=== PATIENT | female | born 1970 | race Caucasian/White ===

== ENCOUNTER → 2016-06-10 | Outpatient (CLI) | payer BC ==
--- NOTE | 2016-06-11 15:47 | MR ---
EXAM DATE: 06/10/16 PATIENT'S AGE: 45 Patient: PATRICIA BLOUNT Facility: [place], [place] Site . Site : 1970 Study: MRI Head W/ and W/O Cont [id number] 7:09:42 PM Ordering Physician: Sheryl Conroy Final Report: INDICATION: migraine, unspecified, not intractable, without st PROCEDURE The entire head was imaged in the axial plane emphasizing EPI DWI and ADC mapping, as well as FLAIR and T2-weighted FSE sequences. T1-weighted and FLAIR sagittal sequences were obtained. Following the uneventful intravenous administration of gadolinium based contrast agent, T1-weighted coronal and axial sequences were also obtained. FINDINGS The brain is normal in morphology and volume. The myers and white matter are normal in signal intensity. The configuration of the ventricular system is within normal limits. All the major intracranial vascular structures demonstrate normal flow-related signal voids. The signal arising from the diploic space is normal. The orbits and their contents are unremarkable. There is no significant intracranial abnormality. There is no mass, mass effect or signal abnormality. There is no evidence for recent or prior hemorrhage. There is no focus of restricted diffusion or pathologic enhancement to suggest recent infarction, active demyelination or acute inflammation. CONCLUSION Normal brain MRI. Dictated by: Michael Love MD @ 06/11/2016 11:07:22 (Electronic Signature) Report Signed by Proxy and Original Signed Document filed in the Medical Record. [facility] HOSPITALDamaso
== END | disposition home or self-care (01) ==
LOC: MW.MRI 17:47
PROVIDERS: ATTEND Psychiatry & Neurology Neuromuscular Medicine
DX: G43.909 Migraine, unspecified, not intractable, without status migrainosus (principal); G89.29 Other chronic pain
CPT/HCPCS: 70553; 70553-26

== ENCOUNTER → 2016-07-24 | Outpatient (CLI) | payer BC ==
--- NOTE | 2016-07-24 18:55 | PCM.PRNOTE ---
- Free Text/Narrative Note: Cardiolite stress test Resting blood pressure 124/84, pulse 99 Patient exercised per Fer protocol 6 minutes and 26 seconds and achieved a maximum heart rate of 150 beats per minute which was 87% of age-predicted maximum heart rate. Mets: 7.0 double product Resting EKG revealed normal sinus rhythm. With exertion, no significant ST-T changes were noted. Test stopped at target heart rate.. No complaints of chest pain during exercise or recovery. Impression: #1. Negative stress test for ischemic ST-T changes #2. Poor exercise tolerance
== END ==
LOC: MW.NM 06:21
PROVIDERS: ATTEND Student in an Organized Health Care Education/Training Program
DX: I10 Essential (primary) hypertension (principal); Z53.9 Procedure and treatment not carried out, unspecified reason
CPT/HCPCS: 93017

== ENCOUNTER 2018-06-11 01:29 | Emergency (ER) | payer BC ==
[2018-06-11] MEDS ORDERED: Sodium Chloride 0.9% 10 ML Syringe FLUSH PRN (01:40)
[2018-06-11] MEDS ORDERED: Sodium Chloride 0.9% 2.5 ML Syringe FLUSH PRN (01:40)
[2018-06-11] MEDS ORDERED: Sodium Chloride 0.9% 1,000 ML IV ONE (01:44)
[2018-06-11] MEDS ORDERED: Ondansetron 4 MG/2 ML SDV IVPUSH ONE ×2 (01:45→03:01)
--- NOTE | 2018-06-11 01:48 | EDM.PDOC ---
ED HPI GENERAL MEDICAL PROBLEM - General Chief Complaint: Chest Pain Stated Complaint: CHEST PAIN Time Seen by Provider: 06/11/18 01:46 - History of Present Illness INITIAL COMMENTS - FREE TEXT/NARRATIVE: HISTORY AND PHYSICAL: History of present illness: Patient's 47-year-old white female with history of hypertension hypercholesterolemia presents with a concern of chest pain 2 days he states that cold cough over last several days and developmental tonight of diaphoresis with carpal pedal spasm of her hands bilaterally she states she was not hyperventilating at the time. She denies fever chills Review of systems: As per history of present illness and below otherwise all systems reviewed and negative. Past medical history: As per history of present illness and as reviewed below otherwise noncontributory. Surgical history: As per history of present illness and as reviewed below otherwise noncontributory. Social history: No reported history of drug or alcohol abuse. Family history: As per history of present illness and as reviewed below otherwise noncontributory. Physical exam: HEENT: Atraumatic, normocephalic, pupils reactive, negative for conjunctival pallor or scleral icterus, mucous membranes moist, throat clear, neck supple, nontender, trachea midline. Lungs: Clear to auscultation, breath sounds equal bilaterally, chest nontender. Heart: S1S2, regular, negative for clicks, rubs, or JVD. Abdomen: Soft, nondistended, nontender. Negative for masses or hepatosplenomegaly. Negative for costovertebral tenderness. Pelvis: Stable nontender. Genitourinary: Deferred. Rectal: Deferred. Extremities: Atraumatic, negative for cords or calf pain. Neurovascular unremarkable. Neuro: Awake, alert, oriented. Cranial nerves II through XII unremarkable. Cerebellum unremarkable. Motor and sensory unremarkable throughout. Exam nonfocal. Diagnostics: CBC CMP troponin PT/INR chest x-ray EKG influenza screen Therapeutics: Saline 1 L bolus Zofran 4 mg IV Impression: #1 atypical chest pain #2 viral syndrome Definitive disposition and diagnosis as appropriate pending reevaluation and review of above. Chest Pain Score (Numeric/FACES): 8 - Related Data Allergies Allergy/AdvReac Type Severity Reaction Status Date / Time acetaminophen [From Fioricet] Allergy Other Verified 06/11/18 01:38 butalbital [From Fioricet] Allergy Other Verified 06/11/18 01:38 caffeine [From Fioricet] Allergy Other Verified 06/11/18 01:38 sumatriptan [From Imitrex] Allergy Anaphylactic Verified 06/11/18 01:38 Shock flu vaccine Allergy Swelling Uncoded 06/11/18 01:38 inderal Allergy Hives Uncoded 06/11/18 01:38 narcotics Allergy Hives Uncoded 06/11/18 01:38 Home Meds: Home Meds Escitalopram Oxalate [Lexapro] 20 mg PO DAILY 04/14/14 [History] Metoprolol Succinate [Toprol Xl] 100 mg PO BEDTIME 04/14/14 [History] ALPRAZolam [Xanax] 1 mg PO ASDIRECTED PRN 02/22/16 [History] Cyclobenzaprine HCl 10 mg PO ASDIRECTED PRN 02/22/16 [History] Ketorolac Tromethamine 1 tab PO ASDIRECTED PRN 02/22/16 [History] Levothyroxine Sodium [Levoxyl] 50 mcg PO DAILY 02/22/16 [History] Promethazine HCl 1 - 2 tab PO ASDIRECTED PRN 02/22/16 [History] Nortriptyline 50 mg PO BEDTIME 05/12/16 [History] Past Medical History HEENT History: Reports: None Cardiovascular History: Reports: High Cholesterol, Hypertension Gastrointestinal History: Reports: GERD Genitourinary History: Reports: None [employer]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, Neurological History: Reports: Migraines Psychiatric History: Reports: Anxiety, Depression Endocrine/Metabolic History: Reports: Hypothyroidism, Obesity/BMI 30+ - Infectious Disease History Infectious Disease History: Reports: Chicken Pox - Past Surgical History Head Surgeries/Procedures: Reports: None HEENT Surgical History: Reports: Adenoidectomy, Tonsillectomy GI Surgical History: Reports: Cholecystectomy, Colonoscopy Female Surgical History: Reports: Section, Hysterectomy, Salpingo- Oophorectomy, Tubal Ligation Dermatological Surgical History: Reports: Plastic Surgical Reconstruction/Repair Social & Family History - Family History Family Medical History: Noncontributory - Tobacco Use Smoking Status *Q: Never Smoker Second Hand Smoke Exposure: No - Caffeine Use Caffeine Use: Reports: Coffee Other Caffeine Use: 2-3 daily - Recreational Drug Use Recreational Drug Use: No ED ROS GENERAL - Review of Systems Review Of Systems: ROS reveals no pertinent complaints other than HPI. ED EXAM, GENERAL - Physical Exam Exam: See Below (See dictation) Course - Vital Signs Last Recorded V/S: Last Vital Signs Temp 36.1 C 06/11/18 01:41 Pulse 94 06/11/18 03:48 Resp 18 06/11/18 02:47 BP 120/76 06/11/18 03:48 Pulse Ox 90 L 06/11/18 03:48 - Orders/Labs/Meds Orders: Active Orders 24 hr Category Date Time Status Cardiac Monitoring [RC] . DIRECTED Care 06/11/18 01:40 Active EKG Documentation Completion [RC] STAT Care 06/11/18 01:40 Active COMPREHENSIVE METABOLIC PN,CMP [CHEM] Stat Lab 06/11/18 01:40 Results TROPONIN I [CHEM] Stat Lab 06/11/18 01:40 Results Sodium Chloride 0.9% [Saline Flush] Med 06/11/18 01:40 Active 10 ml FLUSH ASDIRECTED PRN Sodium Chloride 0.9% [Saline Flush] Med 06/11/18 01:40 Active 2.5 ml FLUSH ASDIRECTED PRN Saline Lock Insert [OM.PC] Stat Oth 06/11/18 01:40 Ordered Medication Orders Sodium Chloride (Saline Flush) 10 ml FLUSH ASDIRECTED PRN PRN Reason: Keep Vein Open Last Admin: 06/11/18 01:55 Dose: 10 ml Sodium Chloride (Saline Flush) 2.5 ml FLUSH ASDIRECTED PRN PRN Reason: Keep Vein Open Last Admin: 06/11/18 01:55 Dose: 2.5 ml Labs: Laboratory Tests 06/11/18 06/11/18 06/11/18 Range/Units 01:40 01:40 01:40 WBC 5.72 (4.0-11.0) K/uL RBC 4.78 (4.30-5.90) M/uL Hgb 15.3 (12.0-16.0) g/dL Hct 43.0 (36.0-46.0) % MCV 90.0 (80.0-98.0) fL MCH 32.0 (27.0-32.0) pg MCHC 35.6 (31.0-37.0) g/dL RDW Std Deviation 41.2 (28.0-62.0) fl RDW Coeff of Judy 13 (11.0-15.0) % Plt Count 219 (150-400) K/uL MPV 9.70 (7.40-12.00) fL Neut % (Auto) 66.9 (48.0-80.0) % Lymph % (Auto) 23.6 (16.0-40.0) % [place] % (Auto) 8.0 (0.0-15.0) % Eos % (Auto) 1.2 (0.0-7.0) % Baso % (Auto) 0.3 (0.0-1.5) % Neut # (Auto) 3.8 (1.4-5.7) K/uL Lymph # (Auto) 1.4 (0.6-2.4) K/uL [place] # (Auto) 0.5 (0.0-0.8) K/uL Eos # (Auto) 0.1 (0.0-0.7) K/uL Baso # (Auto) 0.0 (0.0-0.1) K/uL Nucleated RBC % 0.0 /100WBC Nucleated RBCs # 0 K/uL INR 1.03 Sodium 135 L (136-145) mmol/L Potassium 3.5 (3.5-5.1) mmol/L Chloride 99 (98-107) mmol/L Carbon Dioxide 27.2 (21.0-32.0) mmol/L BUN 18 (7.0-18.0) mg/dL Creatinine 1.6 H (0.6-1.0) mg/dL Est Cr Clr Drug Dosing 41.81 mL/min Estimated GFR (MDRD) 34.4 ml/min Glucose 153 H (74-106) mg/dL Calcium 9.1 (8.5-10.1) mg/dL Total Bilirubin 0.5 (0.2-1.0) mg/dL ALT 28 (14-63) IU/L Troponin I < 0.050 (0.000-0.056) ng/mL Total Protein 7.3 (6.4-8.2) g/dL Albumin 3.7 (3.4-5.0) g/dL Globulin 3.6 (2.6-4.0) g/dL Albumin/Globulin Ratio 1.0 (0.9-1.6) Meds: Medications Generic Name Dose Route Start Last Admin Trade Name Freq PRN Reason Stop Dose Admin Sodium Chloride 10 ml 06/11/18 01:40 06/11/18 01:55 Saline Flush FLUSH 10 ml ASDIRECTED PRN Administration Keep Vein Open Sodium Chloride 2.5 ml 06/11/18 01:40 06/11/18 01:55 Saline Flush FLUSH 2.5 ml ASDIRECTED PRN Administration Keep Vein Open Discontinued Medications Generic Name Dose Route Start Last Admin Trade Name Freq PRN Reason Stop Dose Admin Sodium Chloride 1,000 mls @ 999 mls/hr 06/11/18 01:44 06/11/18 01:52 Normal Saline IV 06/11/18 02:44 999 mls/hr .Bolus ONE Administration Ondansetron HCl 4 mg 06/11/18 01:45 06/11/18 01:55 Zofran IVPUSH 06/11/18 01:46 4 mg ONETIME ONE Administration Ondansetron HCl 4 mg 06/11/18 03:01 06/11/18 03:12 Zofran IVPUSH 06/11/18 03:02 4 mg ONETIME ONE Administration Departure - Departure Time of Disposition: 03:59 Disposition: Home, Self-Care 01 Preliminary Cause of *Q: Sepsis & Multi System Organ Failure Clinical Impression: Influenza - Discharge Information Referrals: Manuel Rodriguez MD [Primary Care Provider] - Forms: ED Department Discharge Additional Instructions: The following information is given to patients seen in the emergency department who are being discharged to home. This information is to outline your options for follow-up care. We provide all patients seen in our emergency department with a follow-up referral. The need for follow-up, as well as the timing and circumstances, are variable depending upon the specifics of your emergency department visit. If you don't have a primary care physician on staff, we will provide you with a referral. We always advise you to contact your personal physician following an emergency department visit to inform them of the circumstance of the visit and for follow-up with them and/or the need for any referrals to a consulting specialist. The emergency department will also refer you to a specialist when appropriate. This referral assures that you have the opportunity for followup care with a specialist. All of these measure are taken in an effort to provide you with optimal care, which includes your followup. Under all circumstances we always encourage you to contact your private physician who remains a resource for coordinating your care. When calling for followup care, please make the office aware that this follow-up is from your recent emergency room visit. If for any reason you are refused follow-up, please contact the [facility] emergency department at and asked to speak to the emergency department charge nurse. Off work until released by primary medical doctor Motrin/Tylenol as directed return as needed as discussed infectious precautions as discussed - My Orders Last 24 Hours: My Active Orders 06/11/18 01:40 Cardiac Monitoring [RC] . DIRECTED EKG Documentation Completion [RC] STAT COMPREHENSIVE METABOLIC PN,CMP [CHEM] Stat TROPONIN I [CHEM] Stat Sodium Chloride 0.9% [Saline Flush] 10 ml FLUSH ASDIRECTED PRN Sodium Chloride 0.9% [Saline Flush] 2.5 ml FLUSH ASDIRECTED PRN Saline Lock Insert [OM.PC] Stat - Assessment/Plan Last 24 Hours: My Active Orders 06/11/18 01:40 Cardiac Monitoring [RC] . DIRECTED EKG Documentation Completion [RC] STAT COMPREHENSIVE METABOLIC PN,CMP [CHEM] Stat TROPONIN I [CHEM] Stat Sodium Chloride 0.9% [Saline Flush] 10 ml FLUSH ASDIRECTED PRN Sodium Chloride 0.9% [Saline Flush] 2.5 ml FLUSH ASDIRECTED PRN Saline Lock Insert [OM.PC] Stat
--- NOTE | 2018-06-11 02:26 | CR ---
INDICATION: Chest pain TECHNIQUE: Chest radiograph 1 view COMPARISON: None FINDINGS: Moderate degradation of image quality noted due to body habitus. Mediastinum: The mediastinum is normal in appearance. The heart silhouette is normal in size and morphology. Lung: Both lungs are unremarkable in appearance. No sign of pleural effusion seen. No pneumothorax is identified. Musculoskeletal: Unremarkable for age. IMPRESSION: 1. No acute cardiopulmonary disease is seen. Dictated by: Héctor Wetzel MD @ 06/11/2018 02:26:10 (Electronically Signed)
[2018-06-11 03:47] LABS: CHLORIDE,CL 99 mmol/L (98-107); SODIUM,NA 135 mmol/L (136-145)
[2018-06-11 03:48] VITALS: BP 120/76
== END 2018-06-11 04:19 | disposition home or self-care (01) ==
LOC: MW.ED 01:29
DX: R07.89 Other chest pain (principal); B34.9 Viral infection, unspecified; F41.9 Anxiety disorder, unspecified; F32.9 Major depressive disorder, single episode, unspecified; I10 Essential (primary) hypertension; E78.00 Pure hypercholesterolemia, unspecified; K21.9 Gastro-esophageal reflux disease without esophagitis; Z88.6 Allergy status to analgesic agent; Z91.018 Allergy to other foods; Z88.7 Allergy status to serum and vaccine; Z88.5 Allergy status to narcotic agent; Z79.899 Other long term (current) drug therapy
CPT/HCPCS: 36415; 71045; 80053; 84484; 85025; 85610; 87804; 93005; 96361; 96374; 96376; 99285; J2405; J7040; 99284

== ENCOUNTER 2020-03-31 11:40 | Emergency (ER) | payer BC ==
[2020-03-31] MEDS ORDERED: hydrOXYzine HCl 25 MG Tab PO ONE (11:41)
[2020-03-31] MEDS ORDERED: methylPREDNISolone Sodium Succinate 125 MG/2 ML SDV ONE (11:45)
--- NOTE | 2020-03-31 11:46 | EDM.PDOC ---
ED HPI GENERAL MEDICAL PROBLEM - General Chief Complaint: Allergic Reaction Stated Complaint: [facility] Time Seen by Provider: 03/31/20 11:41 Source of Information: Reports: Patient History Limitations: Reports: No Limitations - History of Present Illness INITIAL COMMENTS - FREE TEXT/NARRATIVE: She is a 49-year-old female with a history of multiple allergies who presented today after receiving the first dose of the Moderna COVID-19 vaccine. Patient states she has been taking Benadryl for the past few days to prepare but at the receiving shot she became very flushed and itchy from head to toe. Patient denies any shortness of breath throat tightness or swelling of her lips. headache Pain Score (Numeric/FACES): 6 - Related Data Allergies Allergy/AdvReac Type Severity Reaction Status Date / Time acetaminophen [From Fioricet] Allergy Other Verified 03/31/20 11:50 butalbital [From Fioricet] Allergy Other Verified 03/31/20 11:50 caffeine [From Fioricet] Allergy Other Verified 03/31/20 11:50 sumatriptan [From Imitrex] Allergy Anaphylactic Verified 03/31/20 11:50 Shock flu vaccine Allergy Swelling Uncoded 03/31/20 11:50 inderal Allergy Hives Uncoded 03/31/20 11:50 narcotics Allergy Hives Uncoded 03/31/20 11:50 Home Meds: Home Meds Metoprolol Succinate [Toprol Xl] 50 mg PO BEDTIME 04/14/14 [History] ALPRAZolam [Xanax] 1 mg PO ASDIRECTED PRN 02/22/16 [History] Ketorolac Tromethamine 1 tab PO ASDIRECTED PRN 02/22/16 [History] Levothyroxine Sodium [Levoxyl] 50 mcg PO DAILY 02/22/16 [History] Promethazine HCl 1 - 2 tab PO ASDIRECTED PRN 02/22/16 [History] Losartan [Cozaar] 100 mg PO DAILY 03/31/20 [History] Potassium Chloride 20 meq PO BID 03/31/20 [History] Rosuvastatin [Crestor] 10 mg PO DAILY 03/31/20 [History] Valproic Acid [Depakene] 1,000 mg PO ASDIRECTED PRN 03/31/20 [History] Venlafaxine [Venlafaxine HCl ER] 300 mg PO ASDIRECTED PRN 03/31/20 [History] Zolpidem Tartrate [Ambien] 12.5 mg PO ASDIRECTED 03/31/20 [History] hydroCHLOROthiazide [Hydrochlorothiazide] 50 mg PO DAILY 03/31/20 [History] predniSONE [Prednisone] 50 mg PO DAILY 4 Days #4 tablet 03/31/20 [Rx] tiZANidine [Zanaflex] 1 mg PO ASDIRECTED PRN 03/31/20 [History] Past Medical History HEENT History: Reports: None Cardiovascular History: Reports: High Cholesterol, Hypertension Gastrointestinal History: Reports: GERD Genitourinary History: Reports: 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, Neurological History: Reports: Migraines Psychiatric History: Reports: Anxiety, Depression Endocrine/Metabolic History: Reports: Hypothyroidism, Obesity/BMI 30+ - Infectious Disease History Infectious Disease History: Reports: Chicken Pox - Past Surgical History Head Surgeries/Procedures: Reports: None HEENT Surgical History: Reports: Adenoidectomy, Tonsillectomy GI Surgical History: Reports: Cholecystectomy, Colonoscopy Female Surgical History: Reports: Section, Hysterectomy, Salpingo- Oophorectomy, Tubal Ligation Dermatological Surgical History: Reports: Plastic Surgical Reconstruction/Repair Social & Family History - Family History Family Medical History: No Pertinent Family History - Caffeine Use Caffeine Use: Reports: Coffee Other Caffeine Use: 2-3 daily ED ROS GENERAL - Review of Systems Review Of Systems: See Below Constitutional: Reports: No Symptoms HEENT: Reports: No Symptoms Respiratory: Reports: No Symptoms Cardiovascular: Reports: No Symptoms Endocrine: Reports: No Symptoms GI/Abdominal: Reports: No Symptoms : Reports: No Symptoms Musculoskeletal: Reports: No Symptoms Skin: Reports: Pruritis Neurological: Reports: No Symptoms Psychiatric: Reports: No Symptoms Hematologic/Lymphatic: Reports: No Symptoms Immunologic: Reports: No Symptoms ED EXAM, GENERAL - Physical Exam Exam: See Below Exam Limited By: No Limitations General Appearance: Alert, WD/WN Eye Exam: Bilateral Eye: EOMI, PERRL Throat/Mouth: Normal Inspection, Normal Lips, Normal Teeth, Normal Gums, No Airway Compromise Neck: Normal Inspection Respiratory/Chest: No Respiratory Distress, Lungs Clear, Normal Breath Sounds Skin Exam: No: No Rash, Petechiae Course - Vital Signs Last Recorded V/S: Last Vital Signs Temp 97.1 F 03/31/20 11:48 Pulse 85 03/31/20 14:28 Resp 18 03/31/20 14:28 BP 137/91 H 03/31/20 14:28 Pulse Ox 98 03/31/20 14:28 - Orders/Labs/Meds Meds: Medications Discontinued Medications Generic Name Dose Route Start Last Admin Trade Name Daphne PRN Reason Stop Dose Admin Diphenhydramine HCl 25 mg 03/31/20 12:18 03/31/20 12:25 Benadryl IVPUSH 03/31/20 12:19 25 mg ONETIME ONE Administration Famotidine 20 mg 03/31/20 14:20 03/31/20 14:27 Pepcid IVPUSH 03/31/20 14:21 20 mg ONETIME ONE Administration Hydroxyzine HCl 25 mg 03/31/20 11:41 03/31/20 11:56 Atarax PO 03/31/20 11:42 25 mg ONETIME ONE Administration Methylprednisolone Sodium Succinate 125 mg 03/31/20 11:54 03/31/20 11:56 Solu-Medrol IV 03/31/20 11:55 125 mg NOW STA Administration Methylprednisolone Sodium Succinate Confirm 03/31/20 11:45 03/31/20 11:57 Solu-Medrol Administered 03/31/20 11:46 Not Given Dose 125 mg .ROUTE .STK-MED ONE - Re-Assessments/Exams Free Text/Narrative Re-Assessment/Exam: 03/31/20 15:13 Patient has been observed in the ER for over 3 and half hours. Patient symptoms have improved at the Benadryl steroids and Pepcid. Patient will be sent home with a course of steroids. Departure - Departure Time of Disposition: 15:14 Disposition: Still A Patient 30 Condition: Good Clinical Impression: Allergic reaction - Discharge Information *PRESCRIPTION DRUG MONITORING PROGRAM REVIEWED*: Not Applicable *COPY OF PRESCRIPTION DRUG MONITORING REPORT IN PATIENT JUAN JOSE: Not Applicable Instructions: Anaphylactic Reaction, Adult Forms: ED Department Discharge Additional Instructions: The following information is given to patients seen in the emergency department who are being discharged to home. This information is to outline your options for follow-up care. We provide all patients seen in our emergency department with a follow-up referral. The need for follow-up, as well as the timing and circumstances, are variable depending upon the specifics of your emergency department visit. If you don't have a primary care physician on staff, we will provide you with a referral. We always advise you to contact your personal physician following an emergency department visit to inform them of the circumstance of the visit and for follow-up with them and/or the need for any referrals to a consulting specialist. The emergency department will also refer you to a specialist when appropriate. This referral assures that you have the opportunity for follow-up care with a specialist. All of these measure are taken in an effort to provide you with optimal care, which includes your follow-up. Under all circumstances we always encourage you to contact your private physician who remains a resource for coordinating your care. When calling for follow-up care, please make the office aware that this follow-up is from your recent emergency room visit. If for any reason you are refused follow-up, please contact the [facility] Emergency Department at and asked to speak to the emergency department charge nurse. Please follow up with your primary care physician. If you do not have a primary care physician, see below: [facility] [address] [place] [id number] [facility] [address] [place] [id number] Please continue to take the steroids for the next 4 days. If you have any other symptoms please return to the ED. Sepsis Event Note (ED) - Focused Exam Vital Signs: Vital Signs Temp Pulse Resp BP Pulse Ox 03/31/20 14:28 85 18 137/91 H 98 03/31/20 13:36 87 20 138/88 98 03/31/20 12:27 85 20 157/99 H 99 03/31/20 11:48 97.1 F 106 H 18 146/96 H 98 - Assessment/Plan Assessment:: Patient is a 49-year-old female who presents today after receiving the first dose of Moderna COVID-19 vaccine. Patient has some itchiness from Benadryl but has no respiratory symptoms will be given Benadryl and steroids and reassess.
[2020-03-31] MEDS ORDERED: methylPREDNISolone Sodium Succinate 125 MG/2 ML SDV IV STA (11:54)
[2020-03-31] MEDS ORDERED: diphenhydrAMINE 50 MG/ML SDV IVPUSH ONE (12:18)
[2020-03-31] MEDS ORDERED: Famotidine 20 MG/2 ML SDV IVPUSH ONE (14:20)
[2020-03-31 17:11] VITALS: BP 136/86; PULSE 81
== END 2020-03-31 15:33 | disposition home or self-care (01) ==
LOC: MW.ED 11:40
DX: T78.40XA Allergy, unspecified, initial encounter (principal); E78.00 Pure hypercholesterolemia, unspecified; I10 Essential (primary) hypertension; K21.9 Gastro-esophageal reflux disease without esophagitis; E03.9 Hypothyroidism, unspecified; E66.9 Obesity, unspecified; Z68.27 Body mass index [BMI] 27.0-27.9, adult; Z79.899 Other long term (current) drug therapy; Z88.6 Allergy status to analgesic agent; Z88.7 Allergy status to serum and vaccine; Z88.5 Allergy status to narcotic agent; Z88.8 Allergy status to other drugs, medicaments and biological substances
CPT/HCPCS: 96374; 96375; 99283; A9270; J1200; J2930; J3490; 99282